=== PATIENT | female | born 1990 | race Two or more races ===

== ENCOUNTER 2016-08-07 20:06 | Emergency (ER) | payer SELFPAY ==
[~2016-08-07] VITALS: Ht 157.5 cm; Wt 45.4 kg
[~2016-08-07 20:06] MED LIST: AMOXICILLIN500 MG ORAL; NKM
--- NOTE | 2016-08-07 21:12 | Emergency Room Report ---
History of Present Illness General Chief Complaint: General Complaint Source: Patient Present Illness HPI 26 YO female presents to the ED c/o lump in the right breast x 2 day, painful, no erythema, no hx of trauma. Patient denies significant changes in weight, changes to appetite or night sweats. Patient denies family history of breast cancer. She denies nausea, vomiting, fevers, chills. Patient states that she took 3 pills of antibiotics for which he does not know the name of and just describes the pills as red in color. Patient states that palpation exacerbates pain. denies swollen tender lymph nodes. She reports her pain as 10 out of 10 in severity which is tender to the touch. Denies discharge, denies dryness to the areola of the affected breast. Patient is not breast-feeding at this time. Denies CP, Palpitations, LOC, AMS, dizziness, Changes in Vision, Sensation, paresthesias, or a sudden severe headache. Allergies: Coded Allergies: No Known Allergies (Unverified , 03/27/16) Patient History Past Medical History: see triage record Past Surgical History: none Pertinent Family History: none Last Menstrual Period: 07/23/16 Now: No : 0 Para: 0 Reviewed Nursing Documentation: PMH: Agreed, PSxH: Agreed Nursing Documentation-PMH Past Medical History: No Stated History Review of Systems All Other Systems: negative except mentioned in HPI Physical Exam Vital Signs Date Time Temp Pulse Resp B/P Pulse Ox O2 Delivery O2 Flow Rate FiO2 08/07/16 20:09 98.6 91 16 125/84 99 Room Air Sp02 EP Interpretation: reviewed, normal General Appearance: no apparent distress, alert, GCS 15, non-toxic Head: normocephalic, atraumatic Eyes: bilateral eye PERRL, bilateral eye normal inspection ENT: hearing grossly normal, normal pharynx, no angioedema, normal voice Neck: full range of motion, supple/symm/no masses Respiratory: chest non-tender, lungs clear, normal breath sounds, speaking full sentences Cardiovascular #1: regular rate, rhythm, no edema Gastrointestinal: normal bowel sounds, non tender, soft, no guarding, no rebound Rectal: deferred Genitourinary: normal inspection, no CVA tenderness Musculoskeletal: back normal, gait/station normal, normal range of motion, non- tender, no calf tenderness Neurologic: alert, oriented x3, responsive, motor strength/tone normal, sensory intact, speech normal Psychiatric: judgement/insight normal, memory normal, mood/affect normal, no suicidal/homicidal ideation Skin: normal color, no rash, warm/dry, well hydrated, other - well circumscribed freely mobile 1.2cm right lateral breast lump, no erythema or evidence of infection Lymphatic: no adenopathy Medical Decision Making PA Attestation Dr. Horowitz is my supervising Physician whom patient management has been discussed with. Diagnostic Impression: Primary Impression: Breast lump ER Course Pt. presents to the ED c/o lump in the right breast x 2 day, painful, no erythema, no hx of trauma. Ddx considered but are not limited to cellulitis, abscess, cyst, breast tissue, gynecomastia, mastitis,lipoma Vital signs: are WNL, pt. is afebrile H&PE are most consistent with well circumscribed freely mobile 1.2cm right lateral breast lump, no erythema or evidence of infection ORDERS: none required at this time, the diagnosis is clinical ED INTERVENTIONS: None required at this time. d/w pt. that she will be treated with conservative tx however it is very important that she has the lump evaluated with appropriate imaging. pt. is stable for close outpatient follow up. DISCHARGE: At this time pt. is stable for d/c to home. Will provide printed patient care instructions, and any necessary prescriptions. Care plan and follow up instructions have been discussed with the patient prior to discharge. Last Vital Signs Date Time Temp Pulse Resp B/P Pulse Ox O2 Delivery O2 Flow Rate FiO2 08/07/16 20:09 98.6 91 16 125/84 99 Room Air Disposition: HOME, SELF-CARE Condition: Stable Scripts Acetaminophen* (TYLENOL EXTRA STRENGTH*) 500 Mg Tablet 500 MG ORAL Q6H, #30 TAB 0 Refills Prov: Juliette Sheets P.A. 08/07/16 Ibuprofen* (MOTRIN*) 600 Mg Tablet 600 MG ORAL THREE TIMES A DAY, #30 TAB 0 Refills Prov: Juliette Sheets P.A. 08/07/16 Patient Instructions: Breast Cyst, Breast Ultrasound Additional Instructions: Take medications as directed. Follow up with PCP in 3-5 days Return sooner to ED if new symptoms occur, or current symptoms become worse. Do not drink alcohol, drive, or operate heavy machinery while taking [ ] as this may cause drowsiness. - Please note that this Emergency Department Report was dictated using [employer] technology software, occasionally this can lead to erroneous entry secondary to interpretation by the dictation equipment. Juliette Sheets Aug 07, 2016 21:12
[2016-08-07] MEDS ORDERED: TYLENOL EXTRA500 MG ORAL (21:23)
[2016-08-07] MEDS ORDERED: IBUPROFEN600 MG ORAL (21:23)
[2016-08-07 21:43] VITALS: BP 129/86
[2016-08-07 21:44] VITALS: BP 129/86
== END 2016-08-07 21:45 | disposition home or self-care (01) ==
LOC: EMR 20:20
DX: N63 Unspecified lump in breast (principal)
CPT/HCPCS: 99284